=== PATIENT | male | born 1985 | race Caucasian/White ===

== ENCOUNTER 2020-05-23 07:17 | Outpatient (CLI) | payer BC, OTHER ==
[2020-05-23 14:10] LABS: Hemoglobin 15.4 g/dL (14.0-18.0); Mean Corpuscular HGB CONC 34.3 g/dL (32.0-36.0); Mean Corpuscular Hemoglobin 31.3 pg (27.0-31.0); Mean Corpuscular Volume 91.2 fL (78.0-98.0); Mean Platelet Volume 9.1 fL (7.4-10.4); Platelet Count 193 thou/uL (130-400); RBC Distribution Width 11.5 % (11.5-14.5); Red Blood Cell (RBC) Count 4.91 mill/uL (4.70-6.10); White Blood Cell (WBC) Count 3.5 thou/uL (4.8-10.8)
[2020-05-24 12:24] LABS: SARS-CoV-2 MS2 Positive; SARS-CoV-2 N Gene Negative; SARS-CoV-2 S Gene Negative; SARS-CoV-2 orf1ab Negative
== END 2020-05-23 07:18 | disposition home or self-care (01) ==
LOC: LABBT 07:17
PROVIDERS: ATTEND Orthopaedic Surgery Hand Surgery
DX: Z01.812 Encounter for preprocedural laboratory examination (principal); Z11.59 Encounter for screening for other viral diseases; M67.441 Ganglion, right hand
CPT/HCPCS: 85027; 87635; U0003

== ENCOUNTER 2020-05-27 07:57 | Day surgery (SDC) | payer OTHER ==
[2020-05-23 13:19] VITALS: BMI 23.7
[2020-05-27] MEDS ORDERED: Bupivacaine PF 0.5% 30 ML VIAL ONE (09:58)
[2020-05-27] MEDS ORDERED: Betamet Acet/Betamet Na Ph 30 MG/5 ML VIAL ONE (09:58)
[2020-05-27] MEDS ORDERED: Bacitracin Zinc Ointment 30 gm TUBE ONE (09:58)
[2020-05-27] MEDS ORDERED: Sodium Chloride 0.9% 10 ML ONE (09:59)
[2020-05-27] MEDS ORDERED: Midazolam HCl 2 mg/2 ml Vial ONE (10:35)
[2020-05-27] MEDS ORDERED: Fentanyl 100 MCG/2 ML VIAL ONE (10:35)
[2020-05-27] MEDS ORDERED: Dexamethasone 20 MG/5 ML VIAL ONE (10:53)
[2020-05-27] MEDS ORDERED: Lidocaine 1% PF 5 ML VIAL ONE (10:53)
[2020-05-27] MEDS ORDERED: PROPOFOL 200 MG/20 ML VIAL ONE (10:53)
[2020-05-27] MEDS ORDERED: Ondansetron PF 4 MG/2 ML Vial ONE (10:53)
[2020-05-27] MEDS ORDERED: Ketorolac Tromethamine 30 MG/ML VIAL ONE (12:12)
--- NOTE | 2020-05-27 13:49 | OP ---
DATE OF PROCEDURE: 05/27/2020 TOURNIQUET TIME: 15 minutes. ESTIMATED BLOOD LOSS: Less than 5 mL. PREOPERATIVE DIAGNOSES: 1. Dupuytren's palmar fascial nodule, 2 x 0.7 cm. 2. Marked flexor tenosynovitis of flexor digitorum profundus and flexor digitorum superficialis at the A1 nell. 3. A1 nell triggering. PROCEDURES PERFORMED: 1. Flexor tenosynovectomy, radical, flexor digitorum superficialis. 2. Flexor tenosynovectomy, radical, flexor digitorum profundus. 3. A1 nell release. 4. Excision of Dupuytren's palmar fasciitis or fascial mass. SPECIMEN SENT: Tenosynovectomy and Dupuytren's cord excision. DESCRIPTION OF PROCEDURE: After successful general endotracheal anesthesia, limb was prepped and draped. We outlined a zigzag incision over the mass, 5 mm distal to it and 5 proximal. We then noticed that it felt like a palmar fascial mass or the ganglion. We then exsanguinated the limb, inflated the tourniquet to 250 mmHg pressure, and began surgery. With the finger slightly flexed, we were able to make a zigzag incision along the mass, the mass from the underlying skin, which was a problem, and then, after the neuroplasty of the digital nerves, we protected them and then visualized where the mass came from the sheath. The flexor sheath was not violated, but we removed the mass with tenotomy scissors, protecting the web space of common digital nerve and then we elevated off the A1 nell. We performed the A1 nell release and inspected the tendons. We found that the patient had marked tenosynovitis. We did a radical flexor tenosynovectomy, both the flexor digitorum profundus and superficialis. Once this was done, we placed 5 mL of Celestone in a wound drip technique and held there until evaporated. We released the tourniquet, obtained hemostasis, closed the wound with interrupted 4-0 nylon in one simple pattern. Job ID: [id number]
== END 2020-05-27 13:59 | disposition home or self-care (01) ==
LOC: SDC 07:57
PROVIDERS: ATTEND Orthopaedic Surgery Hand Surgery
PROC: 0LB70ZZ Excision of Right Hand Tendon, Open Approach (ICD-10-PCS; principal; 2020-05-27)
DX: M67.441 Ganglion, right hand (principal); F17.220 Nicotine dependence, chewing tobacco, uncomplicated
CPT/HCPCS: 88304; J0690; J0702; J1100; J1885; J2250; J2405; J2704; J3010; J3490; S0020